=== PATIENT | male | born 1975 | race Caucasian/White ===

== ENCOUNTER 2017-03-27 17:33 | Emergency (ER) | END 2017-03-27 21:02 | disposition home or self-care (01) | DX: K80.20 Calculus of gallbladder without cholecystitis without obstruction (principal); K70.31 Alcoholic cirrhosis of liver with ascites; I50.9 Heart failure, unspecified; E11.22 Type 2 diabetes mellitus with diabetic chronic kidney disease; N18.9 Chronic kidney disease, unspecified; R07.9 Chest pain, unspecified; Z79.4 Long term (current) use of insulin | CPT/HCPCS: 36415; 71010; 74176; 80053; 82140; 83690; 84484; 85025; 85610; 93005; 96374; J1940; Z7502; Z7610 ==

== ENCOUNTER 2017-06-01 15:10 | Emergency (ER) | payer MEDICAID ==
[~2017-06-01] VITALS: Ht 162.6 cm; Wt 90.0 kg
[~2017-06-01 15:10] MED LIST: INSU100V3 IJ; LACT20SO2 PO; LANT3I SC; MULTI PO; PANT40TA4 PO; PRED10TA PO; THIA100T10 PO
[2017-06-01] MEDS ORDERED: morphine 4 MG/ML VIAL IV STA (15:16)
[2017-06-01] MEDS ORDERED: ONDANSETRON 4 MG INJ IV STA (15:16)
--- NOTE | 2017-06-01 15:33 | ERD ---
ER Documentation Chief Complaint Chief Complaint Abdominal swelling HPI This is a 41-year-old male with a known diagnosis of alcoholic cirrhosis, fairly new diagnosis. Patient presents with abdominal bloating and swelling. He describes chronic lower extremity edema that is unchanged. He describes a fullness sensation. 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 He denies any fevers or chills, no hematemesis, no melena, no chest pain or shortness of breath. ROS All systems reviewed and are negative except as per history of present illness. Medications Home Meds Reported Medications Prednisone* (Prednisone*) 10 Mg Tab, 10 MG PO DAILY, TAB TAKE 3TAB DAILY FOR 1 WEEK, 2TAB DAILY FOR 1 WEEK, 1TAB DAILY FOR 1 WEEK,THEN STOP. 03/27/17 Insulin Glargine* (Lantus*) 100 Unit/Ml Soln, 8 UNIT SC QHS, #1 VIAL 03/27/17 Insulin Regular, Human (Humulin R) 100 Unit/1 Ml Vial, 100 UNIT IJ SLIDING SCALE , VIAL 16 UNITS 03/27/17 Lactulose* (Lactulose*) 20 Gm/30 Ml Solution, 20 GM PO TID, ML 03/27/17 Multivitamins* (Theragran*) 1 Tab Tab, 1 TAB PO DAILY, TAB 03/27/17 Pantoprazole* (Pantoprazole*) 40 Mg Tablet.dr, 40 MG PO AC BREAKFAST, TAB 03/27/17 Thiamine* (Thiamine*) 100 Mg Tablet, 100 MG PO DAILY, TAB 03/27/17 Allergies Allergies: Coded Allergies: No Known Allergy (Unverified , 03/27/17) PMhx/Soc History of Surgery: No Anesthesia Reaction: No Hx Neurological Disorder: No Hx Cardiac Disorders: Yes (HTN) Hx Miscellaneous Medical Probl: Yes (DM, CHF) Hx Alcohol Use: No Hx Substance Use: No Hx Tobacco Use: No FmHx Family History: No diabetes Physical Exam Vitals Vital Signs Date Time Temp Pulse Resp B/P Pulse Ox O2 Delivery O2 Flow Rate FiO2 06/01/17 15:46 98.0 67 17 117/67 100 Room Air 06/01/17 15:38 98.2 89 18 130/78 99 Physical Exam General: Well developed, well nourished, no acute distress Head: Normocephalic, atraumatic. Eyes: Pupils equally reactive, EOM intact ENT: Moist mucous membranes Neck: Supple, no lymphadenopathy Respiratory: Lungs clear bilaterally, no distress Cardiovascular: RRR, no murmurs, rubs, or gallops Abdominal: Soft, protuberant with fluid wave, nontender, no pulsatile mass, negative Arias sign, no tenderness to McBurney's point. : Deferred MSK: No edema, no unilateral swelling, 5/5 strength Neurologic: Alert and oriented, moving all extremities, normal speech, no focal weakness, no cerebellar signs Skin: No rash Psych: Normal mood Result Diagram: 06/01/17 1530 06/01/17 1530 Results 24 hrs Laboratory Tests Test 06/01/17 15:30 White Blood Count 3.910^3/ul Red Blood Count 2.2110^6/ul Hemoglobin 7.5g/dl Hematocrit 22.2% Mean Corpuscular Volume 100.5fl Mean Corpuscular Hemoglobin 33.9pg Mean Corpuscular Hemoglobin Concent 33.8g/dl Red Cell Distribution Width 14.6% Platelet Count 5410^3/UL Mean Platelet Volume 13.2fl Neutrophils % 62.4% Lymphocytes % 23.8% Monocytes % 11.5% Eosinophils % 1.5% Basophils % 0.8% Nucleated Red Blood Cells % 0.0/100WBC Neutrophils # 2.410^3/ul Lymphocytes # 0.910^3/ul Monocytes # 0.510^3/ul Eosinophils # 0.110^3/ul Basophils # 0.010^3/ul Nucleated Red Blood Cells # 0.010^3/ul Prothrombin Time 20.4Sec Prothrombin Time Ratio 1.6 INR International Normalized Ratio 1.73 Activated Partial Thromboplast Time 42.4Sec Sodium Level 139mmol/L Potassium Level 4.1mmol/L Chloride Level 109mmol/L Carbon Dioxide Level 21mmol/L Anion Gap 13 Blood Urea Nitrogen 13mg/dl Creatinine 1.62mg/dl Glucose Level 140mg/dl Calcium Level 7.8mg/dl Total Bilirubin 0.9mg/dl Direct Bilirubin 0.00mg/dl Indirect Bilirubin 0.9mg/dl Aspartate Amino Transf (AST/SGOT) 34IU/L Alanine Aminotransferase (ALT/SGPT) 35IU/L Alkaline Phosphatase 74IU/L Total Protein 6.1g/dl Albumin 2.4g/dl Globulin 3.70g/dl Albumin/Globulin Ratio 0.64 Lipase 370U/L Current Medications Medications (Trade) Dose Ordered Sig/Avis Route PRN Reason Start Time Stop Time Status Last Admin Dose Admin Morphine Sulfate (morphine) 4 mg ONCE STAT IV 06/01/17 15:16 06/01/17 15:19 DC Ondansetron HCl (Zofran Inj) 4 mg ONCE STAT IV 06/01/17 15:16 06/01/17 15:19 DC Lidocaine (Xylocaine 1% (Mpf)) 5 ml STK-MED ONCE .ROUTE 06/01/17 17:04 06/01/17 17:05 DC Procedures/MDM EKG, MONITORS, & DIAGNOSTIC IMAGING: Large volume therapeutic paracentesis performed by interventional radiology. LAB INTERPRETATION: No significant coagulopathy noted. MEDICAL DECISION MAKING: The patient presents with abdominal ascites likely secondary to cirrhosis. Patient does not exhibit any signs or symptoms concerning for complications of cirrhosis such as GI bleed, hepatic encephalopathy or spontaneous bacterial peritonitis. There is no indication currently for diagnostic paracentesis. The patient will benefit from large volume therapeutic paracentesis by interventional radiology. If the patient remains stable without evidence of hemodynamic compromise secondary to fluid shifts the patient can be safely discharged home with close primary care and hepatology follow-up. The patient has no evidence of SBP. The patient reports that he has never had a large-volume paracentesis before but he does have a confirmed diagnosis of alcoholic cirrhosis. For this reason I do not believe that ascites fluid testing is necessary. ER COURSE: The patient had successful large volume therapeutic paracentesis. The patient remained hemodynamically stable and otherwise well-appearing. The patient is safe for discharge home. I kept the patient and/or family informed of laboratory and diagnostic imaging results throughout the emergency room course. DISPOSITION PLAN: We discussed follow up with the patient's primary care doctor within 24 to 48 hours as needed. We also discussed return to the emergency room for worsening symptoms or worsening condition. Discharge Medications: None Departure Diagnosis: Primary Impression: Alcoholic cirrhosis Ascites presence: with ascites Qualified Code: K70.31 - Alcoholic cirrhosis of liver with ascites Additional Impressions: Ascites Ascites type: due to alcoholic cirrhosis Qualified Code: K70.31 - Ascites due to alcoholic cirrhosis Pancytopenia Renal insufficiency Condition: Stable KASEY CROSS MD Jun 01, 2017 15:33
[2017-06-01 15:38] VITALS: Ht 162.6 cm; Wt 90.0 kg
[2017-06-01 15:46] VITALS: BP 117/67; PULSE 67; RESP 17; TEMP 98
[2017-06-01 15:46] LABS: ABNORMAL IP MESSAGE 1; BASOPHILS % 0.8 % (0.0-2.0); EOSINOPHILS # 0.1 10^3/ul (0.0-0.5); EOSINOPHILS % 1.5 % (0.0-7.0); HEMATOCRIT 22.2 % (42.0-52.0); HEMOGLOBIN 7.5 g/dl (14.0-18.0); LYMPHOCYTES # 0.9 10^3/ul (0.8-2.9); LYMPHOCYTES % 23.8 % (15.0-51.0); MEAN CORPUSCULAR HEMOGLOBIN 33.9 pg (29.0-33.0); MEAN CORPUSCULAR HGB CONC 33.8 g/dl (32.0-37.0); MEAN CORPUSCULAR VOLUME 100.5 fl (82.0-101.0); MEAN PLATELET VOLUME 13.2 fl (7.4-10.4); MONOCYTE # 0.5 10^3/ul (0.3-0.9); MONOCYTES % 11.5 % (0.0-11.0); NEUTROPHIL # 2.4 10^3/ul (1.6-7.5); NEUTROPHILS % 62.4 % (39.0-77.0); POSITIVE DIFF @See below; RED BLOOD COUNT 2.21 10^6/ul (4.70-6.10); RED CELL DISTRIBUTION WIDTH 14.6 % (11.5-14.5); WHITE BLOOD COUNT 3.9 10^3/ul (4.8-10.8)
[2017-06-01 15:49] LABS: PLATELET COUNT 54 10^3/UL (140-415)
[2017-06-01 16:00] LABS: INR 1.73; PROTIME 20.4 Sec (12.2-14.2); PT RATIO 1.6
[2017-06-01 16:01] LABS: PARTIAL THROMBOPLASTIN TIME 42.4 Sec (25.0-35.0)
[2017-06-01 16:07] LABS: ALBUMIN 2.4 g/dl (3.3-4.9); ALBUMIN/GLOBULIN RATIO 0.64; BILIRUBIN,INDIRECT 0.9 mg/dl (0-1.1); BILIRUBIN,TOTAL 0.9 mg/dl (0.2-1.3); CALCIUM 7.8 mg/dl (8.4-10.2); CREATININE 1.62 mg/dl (0.61-1.24); POTASSIUM 4.1 mmol/L (3.5-5.1); TOTAL PROTEIN 6.1 g/dl (6.1-8.1)
[2017-06-01] MEDS ORDERED: LIDOCAINE 1% (MPF) 5 ML VIAL ONE (17:04)
--- NOTE | 2017-06-01 17:16 | RADRPT ---
PROCEDURE: Ultrasound guided paracentesis. CLINICAL INDICATION: Ascites and shortness of breath. COMPARISON: No prior studies are available for comparison. TECHNIQUE: The risks, benefits, and alternatives were explained to the patient and/or the patient's family, inc luding but not limited to bleeding, infection, pain, visceral or vascular damage, shock, and . The patient and/or the patient's family understood the risks and the alternatives and wished to pro ceed with the procedure. Informed written consent was obtained. A procedural time out was performed . The patient's name, date of , and procedure to be performed were verified. Utilizing ultrasound guidance, optimal location for entry to the peritoneal cavity was ascertained. The overlying skin was prepped and draped in the usual sterile fashion. Approximately 10 ml of 1% Xylocaine was injected locally for pain control. Using ultrasound guidance, an 8 Prydeinig catheter wa s introduced into the peritoneal cavity in the right lower quadrant without difficulty. FINDINGS: Initial images demonstrate ascites. Approximately 6.1 liters of serous fluid was aspirated and disc arded. The patient tolerated the procedure well without complication. IMPRESSION: 1. Successful ultrasound-guided paracentesis. RPTAT: QQ .Nick Camejo MD, Date Time Electronically viewed and signed by .Nick Camejo MD, on 06/01/2017 17:15 .R/
[2017-06-01] MEDS ORDERED: THIA100T10 PO (17:38)
== END 2017-06-01 18:00 | disposition home or self-care (01) ==
LOC: E/R 15:10
DX: K70.31 Alcoholic cirrhosis of liver with ascites (principal); D61.818 Other pancytopenia; I10 Essential (primary) hypertension; E11.9 Type 2 diabetes mellitus without complications; I50.9 Heart failure, unspecified; N28.9 Disorder of kidney and ureter, unspecified; Z79.4 Long term (current) use of insulin
CPT/HCPCS: 36415; 80053; 83690; 85025; 85610; 85730; Z7502; Z7610; J2270; J2405

== ENCOUNTER 2018-09-05 17:16 | Emergency (ER) | payer MEDICAID, OTHER ==
[~2018-09-05] VITALS: Ht 180.3 cm; Wt 90.9 kg
[~2018-09-05 17:16] MED LIST changes: +IBUP-1561 PO; -INSU100V3 IJ; -LANT3I SC; +NAPR-985 PO; +TRAM50TA2 PO
[2018-09-05 17:18] VITALS: Ht 180.3 cm; Wt 90.9 kg
[2018-09-05] MEDS ORDERED: LIDOCAINE/MYLANTA 40 ML BTL PO STA (18:01)
--- NOTE | 2018-09-05 20:55 | ERD ---
ER Documentation Chief Complaint Chief Complaint CHRONIC ABD PAIN WITH N/V X 4 YEARS HPI This is a 42-year-old male presents for 4 years of chronic abdominal pain, described as diffuse, he endorses nausea and vomiting. He endorses daily alcohol use, he denies chest pain or shortness of breath, he denies recent surgeries or hospitalizations. ROS All systems reviewed and are negative except as per history of present illness. Medications Home Meds Discontinued Reported Medications Thiamine* (Thiamine*) 100 Mg Tablet, 100 MG PO DAILY, TAB 06/01/17 Prednisone* (Prednisone*) 10 Mg Tab, 10 MG PO DAILY, TAB TAKE 3TAB DAILY FOR 1 WEEK, 2TAB DAILY FOR 1 WEEK, 1TAB DAILY FOR 1 WEEK,THEN STOP. 03/27/17 Lactulose* (Lactulose*) 20 Gm/30 Ml Solution, 20 GM PO TID, ML 03/27/17 Multivitamins* (Theragran*) 1 Tab Tab, 1 TAB PO DAILY, TAB 03/27/17 Pantoprazole* (Pantoprazole*) 40 Mg Tablet.dr, 40 MG PO AC BREAKFAST, TAB 03/27/17 Discontinued Scripts Tramadol HCl (Tramadol HCl) 50 Mg Tablet, 50 MG PO Q4 PRN for PAIN, #20 TAB Prov:BHUPINDER,GAEL C 01/11/18 Naproxen* (Naprosyn*) 500 Mg Tablet, 500 MG PO BID PRN for PAIN AND/OR INFLAMMATION, #30 TAB Prov:BHUPINDER,GAEL C 01/11/18 Ibuprofen* (Motrin*) 400 Mg Tab, 400 MG PO Q6, #30 TAB Prov:VANDANA DOCKERY PA-C 11/22/17 Allergies Allergies: Coded Allergies: No Known Allergy (Unverified , 09/05/18) PMhx/Soc Medical and Surgical Hx: pt denies Surgical Hx History of Surgery: No Anesthesia Reaction: No Hx Neurological Disorder: No Hx Respiratory Disorders: No Hx Cardiac Disorders: Yes (HTN, CHF, heart murmur) Hx Psychiatric Problems: No Hx Miscellaneous Medical Probl: Yes (DM, cirrhosis, arthritis) Hx Alcohol Use: Yes Hx Substance Use: Yes (MARIJUANA) Hx Tobacco Use: Yes Smoking Status: Current some day smoker Physical Exam Vitals Vital Signs Date Temp Pulse Resp B/P (MAP) Pulse Ox O2 O2 Flow FiO2 Time Delivery Rate 09/05/18 98.9 82 16 145/77 97 19:45 (99) 09/05/18 99.3 92 18 165/78 97 17:18 (107) Physical Exam Const: No acute distress Head: Atraumatic Eyes: Normal Conjunctiva ENT: Normal External Ears, Nose and Mouth. Neck: Full range of motion. No meningismus. Resp: Clear to auscultation bilaterally Cardio: Regular rate and rhythm, no murmurs Abd: Soft, mild epigastric tenderness, negative Arias sign, no rebound or guarding, non distended. Normal bowel sounds Skin: No petechiae or rashes Back: No midline or flank tenderness Ext: No cyanosis, or edema Neur: Awake and alert Psych: Normal Mood and Affect Result Diagram: 09/05/18181709/05/181817 Results 24 hrs Laboratory Tests Test 09/05/18 18:18 09/05/18 20:32 White Blood Count 4.5 10^3/ul Red Blood Count 2.83 10^6/ul Hemoglobin 9.1 g/dl Hematocrit 26.9 % Mean Corpuscular Volume 95.1 fl Mean Corpuscular Hemoglobin 32.2 pg Mean Corpuscular Hemoglobin Concent 33.8 g/dl Red Cell Distribution Width 14.6 % Platelet Count 38 10^3/UL Mean Platelet Volume 12.8 fl Immature Granulocytes % 0.200 % Neutrophils % % Segmented Neutrophils % (Manual) 64 % Lymphocytes % % Lymphocytes % (Manual) 18 % Monocytes % % Monocytes % (Manual) 12 % Eosinophils % % Eosinophils % (Manual) 2 % Basophils % % Basophils % (Manual) 4 % Nucleated Red Blood Cells % 0.0 /100WBC Immature Granulocytes # 0.010 10^3/ul Neutrophils # 10^3/ul Lymphocytes (Manual) 0.8 10^3/ul Lymphocytes # 10^3/ul Monocytes # 10^3/ul Monocytes # (Manual) 0.5 10^3/ul Eosinophils # 10^3/ul Basophils # 10^3/ul Basophils # (Manual) 0.1 10^3/ul Nucleated Red Blood Cells # 10^3/ul Pathologist Review (Hematology) YES Platelet Estimate SIG DECREASED Sodium Level 144 mmol/L Potassium Level 4.3 mmol/L Chloride Level 107 mmol/L Carbon Dioxide Level 25 mmol/L Anion Gap 12 Blood Urea Nitrogen 18 mg/dl Creatinine 1.98 mg/dl Est Glomerular Filtrat Rate mL/min 37 mL/min Glucose Level 195 mg/dl Calcium Level 8.6 mg/dl Total Bilirubin 1.8 mg/dl Direct Bilirubin 0.00 mg/dl Indirect Bilirubin 1.8 mg/dl Aspartate Amino Transf (AST/SGOT) 78 IU/L Alanine Aminotransferase (ALT/SGPT) 40 IU/L Alkaline Phosphatase 120 IU/L Troponin I < 0.012 ng/ml Total Protein 7.7 g/dl Albumin 4.1 g/dl Globulin 3.60 g/dl Albumin/Globulin Ratio 1.13 Lipase 328 U/L Urine Color YELLOW Urine Clarity CLEAR Urine pH 5.0 Urine Specific [place] 1.016 Urine Ketones NEGATIVE mg/dL Urine Nitrite NEGATIVE mg/dL Urine Bilirubin NEGATIVE mg/dL Urine Urobilinogen 2+ mg/dL Urine Leukocyte Esterase NEGATIVE Ruth/ul Urine Hemoglobin NEGATIVE mg/dL Urine Glucose NEGATIVE mg/dL Urine Total Protein NEGATIVE mg/dl Current Medications Medications Dose Sig/Avis Start Time Status Last (Trade) Ordered Route PRN Stop Time Admin Dose Reason Admin 40 ml ONCE STAT 09/05/18 DC 09/05/18 Miscellaneous PO 18:01 18:21 Medication 09/05/18 18:02 (Gi Cocktail (2)) Procedures/MDM This is a 42-year-old male presents for fashion of abdominal pain. Exam reveals no abdominal peritoneal signs, negative Arias sign, no signs of acute cholecystitis, CT abdomen pelvis did show gallstones, and a mildly elevated lipase, clinically has no evidence of acute pancreatitis, he is able to tolerate oral intake, discussed findings with patient, he wished to be discharged home, at discharge the patient was ambulatory in no acute distress EKG: Rate/Rhythm: Normal Sinus Rhythm QRS, ST, T-waves: No changes consistent w/ acute ischemia Impression: No evidence of ischemia or arrhythmia Departure Diagnosis: Primary Impression: Abdominal pain Abdominal location: unspecified location Qualified Codes: R10.9 - Unspecified abdominal pain Condition: Stable Patient Instructions: Abdominal Pain, Gallstones Referrals: [facility] YOU HAVE RECEIVED A MEDICAL SCREENING EXAM AND THE RESULTS INDICATE THAT YOU DO NOT HAVE A CONDITION THAT REQUIRES URGENT TREATMENT IN THE EMERGENCY DEPARTMENT. FURTHER EVALUATION AND TREATMENT OF YOUR CONDITION CAN WAIT UNTIL YOU ARE SEEN IN YOUR DOCTORS OFFICE WITHIN THE NEXT 1-2 DAYS. IT IS YOUR RESPONSIBILITY TO MAKE AN APPOINTMENT FOR FOLOW-UP CARE. IF YOU HAVE A PRIMARY DOCTOR --you should call your primary doctor and schedule and appointment IF YOU DO NOT HAVE A PRIMARY DOCTOR YOU CAN CALL OUR PHYSICIAN REFERRAL HOTLINE AT . IF YOU CAN NOT AFFORD TO SEE A PHYSICIAN YOU CAN CHOSE FROM THE FOLLOWING [facility] INSTITUTIONS: [facility] [address] [place] [address] [facility] [address] [place] [address] [facility] [address] [place] [address] Additional Instructions: Call your primary care doctor TOMORROW for an appointment during the next 2-3 da ys.See the doctor sooner or return here if your condition worsens before your appointment time. KEVIN FRIEND MD Sep 05, 2018 20:55
[2018-09-05 20:56] VITALS: BP 132/80; PULSE 80; RESP 16
== END 2018-09-05 20:57 | disposition home or self-care (01) ==
LOC: E/R 17:16
DX: R10.13 Epigastric pain (principal); E11.9 Type 2 diabetes mellitus without complications; I11.0 Hypertensive heart disease with heart failure; I50.9 Heart failure, unspecified; F17.210 Nicotine dependence, cigarettes, uncomplicated
CPT/HCPCS: 36415; 71045; 74176; 80053; 81003; 83690; 84484; 85025; Z7502; Z7610; 93005

== ENCOUNTER 2018-10-20 09:04 | Emergency (ER) | payer MEDICAID ==
[~2018-10-20] VITALS: Ht 167.6 cm; Wt 95.3 kg
[2018-10-20 09:09] VITALS: Ht 167.6 cm; Wt 95.3 kg
--- NOTE | 2018-10-20 09:54 | ERD ---
ER Documentation Chief Complaint Chief Complaint Complains of bilateral foot pain x 1 week HPI 42-year-old male with history of liver cirrhosis is here complaining of bilateral foot pain and lower extremity edema that has been going on for several weeks he states. No abdominal swelling. No nausea or vomiting. No diarrhea. No fever. No chest pain palpitations or shortness of breath. No trauma. He is ambulatory. Admits to drinking alcohol this morning. ROS All systems reviewed and are negative except as per history of present illness. Medications Home Meds Active Scripts Hydrocodone/Acetaminophen ([place] 5-325 Tablet) 1 Each Tablet, 1 EACH PO Q6, #15 TAB Prov:MAEVE LESLIE PA-C 10/20/18 Allergies Allergies: Coded Allergies: No Known Allergy (Unverified , 09/05/18) PMhx/Soc History of Surgery: No Anesthesia Reaction: No Hx Neurological Disorder: No Hx Respiratory Disorders: No Hx Cardiac Disorders: Yes (HTN, CHF, heart murmur) Hx Psychiatric Problems: No Hx Miscellaneous Medical Probl: Yes (DM, cirrhosis, arthritis) Hx Alcohol Use: Yes Hx Substance Use: Yes (MARIJUANA) Hx Tobacco Use: Yes Smoking Status: Current every day smoker FmHx Family History: No diabetes Physical Exam Vitals Vital Signs Date Temp Pulse Resp B/P (MAP) Pulse Ox O2 O2 Flow FiO2 Time Delivery Rate 10/20/18 97.4 86 20 178/97 97 09:09 (124) Physical Exam Const: No acute distress Head: Atraumatic Eyes: Normal Conjunctiva ENT: Normal External Ears, Nose and Mouth. Neck: Full range of motion. No meningismus. Resp: Clear to auscultation bilaterally Cardio: Regular rate and rhythm, no murmurs Abd: Soft, non tender, non distended. Normal bowel sounds Ext: Bilateral lower extremity 2+ edema in the ankles, sensation to light touch is intact, no warmth or erythema, tender to palpation bilaterally Result Diagram: 10/20/1895710/20/18957 Results 24 hrs Laboratory Tests Test 10/20/18 09:58 White Blood Count 3.3 10^3/ul Red Blood Count 2.61 10^6/ul Hemoglobin 8.4 g/dl Hematocrit 25.2 % Mean Corpuscular Volume 96.6 fl Mean Corpuscular Hemoglobin 32.2 pg Mean Corpuscular Hemoglobin Concent 33.3 g/dl Red Cell Distribution Width 14.6 % Platelet Count 28 10^3/UL Mean Platelet Volume 10.9 fl Immature Granulocytes % 0.000 % Neutrophils % 60.7 % Lymphocytes % 27.0 % Monocytes % 9.2 % Eosinophils % 2.5 % Basophils % 0.6 % Nucleated Red Blood Cells % 0.0 /100WBC Immature Granulocytes # 0.000 10^3/ul Neutrophils # 2.0 10^3/ul Lymphocytes # 0.9 10^3/ul Monocytes # 0.3 10^3/ul Eosinophils # 0.1 10^3/ul Basophils # 0.0 10^3/ul Nucleated Red Blood Cells # 0.0 10^3/ul Pathologist Review (Hematology) YES Urine Color YELLOW Urine Clarity CLEAR Urine pH 5.0 Urine Specific [place] 1.011 Urine Ketones NEGATIVE mg/dL Urine Nitrite NEGATIVE mg/dL Urine Bilirubin NEGATIVE mg/dL Urine Urobilinogen 1+ mg/dL Urine Leukocyte Esterase NEGATIVE Ruth/ul Urine Hemoglobin NEGATIVE mg/dL Urine Glucose NEGATIVE mg/dL Urine Total Protein NEGATIVE mg/dl Sodium Level 147 mmol/L Potassium Level 4.3 mmol/L Chloride Level 110 mmol/L Carbon Dioxide Level 24 mmol/L Anion Gap 13 Blood Urea Nitrogen 16 mg/dl Creatinine 1.66 mg/dl Est Glomerular Filtrat Rate mL/min 45 mL/min Glucose Level 196 mg/dl Calcium Level 8.6 mg/dl Total Bilirubin 1.9 mg/dl Direct Bilirubin 0.00 mg/dl Indirect Bilirubin 1.9 mg/dl Aspartate Amino Transf (AST/SGOT) 114 IU/L Alanine Aminotransferase (ALT/SGPT) 39 IU/L Alkaline Phosphatase 101 IU/L Total Protein 7.2 g/dl Albumin 3.7 g/dl Globulin 3.50 g/dl Albumin/Globulin Ratio 1.05 Lipase 390 U/L Current Medications Medications Dose Sig/Avis Start Time Status Last (Trade) Ordered Route PRN Stop Time Admin Dose Reason Admin 1 tab ONCE ONCE 10/20/18 DC 10/20/18 Acetaminophen PO 10:00 10:09 / 10/20/18 10:01 Hydrocodone Bitart ([place] ()) Procedures/MDM This patient has lower extremity edema and pain secondary to history of liver cirrhosis secondary to alcohol abuse. No evidence of DVT. Abdominal labs checked. [place] given for pain. Reviewed case with Dr. Palma who agrees with the plan. Patient counseled regarding my diagnostic impression and care plan. Prior to discharge all questions answered. Pt agrees with treatment plan and understands strict return precautions. Pt is instructed to follow up with primary care provider within 24-48 hours. Precautionary instructions provided including instructions to return to the ER if not improving or for any worsening or changing symptoms or concerns. Platelets are low at 28 otherwise his labs look similar to previous visits. No bleeding at this time. Patient was counseled on stopping alcohol consumption elevating feet at home. He needs to follow-up with his primary care doctor. He was given [place] for pain. Patient counseled regarding my diagnostic impression and care plan. Prior to discharge all questions answered. Pt agrees with treatment plan and understands strict return precautions. Pt is instructed to follow up with primary care provider within 24-48 hours. Precautionary instructions provided including instructions to return to the ER if not improving or for any worsening or changing symptoms or concerns. Departure Diagnosis: Primary Impression: Alcohol abuse Additional Impressions: Lower extremity edema Thrombocytopenia Condition: Stable MAEVE LESLIE PA-C Oct 20, 2018 09:54
[2018-10-20] MEDS ORDERED: HYDROCODONE/APAP (10/325) TAB PO ONE (10:00)
[2018-10-20] MEDS ORDERED: HYDR-4011 PO (10:58)
[2018-10-20 11:18] VITALS: BP 161/89; PULSE 79; RESP 20
== END 2018-10-20 11:17 | disposition home or self-care (01) ==
LOC: FTE 09:04
DX: F10.10 Alcohol abuse, uncomplicated (principal); E11.9 Type 2 diabetes mellitus without complications; I11.0 Hypertensive heart disease with heart failure; I50.9 Heart failure, unspecified; F17.210 Nicotine dependence, cigarettes, uncomplicated; R22.43 Localized swelling, mass and lump, lower limb, bilateral; D69.6 Thrombocytopenia, unspecified
CPT/HCPCS: 36415; 80053; 81003; 83690; 85025; Z7502; Z7610; 99283